=== PATIENT | male | born 1980 | race Caucasian/White ===

== ENCOUNTER 2017-09-26 19:18 | Emergency (ER) | payer OTHER ==
[2017-09-26 19:22] VITALS: BP 133/65; PULSE 88; TEMP 98.9; BMI 33.2
[2017-09-26 19:42] LABS: URINE APPEARANCE CLEAR; URINE BILIRUBIN NEGATIVE (<2.0 mg/dL); URINE COLOR LTYELLOW; URINE GLUCOSE (UA) NEGATIVE (NEGATIVE); URINE KETONE NEGATIVE (NEGATIVE); URINE NITRITE NEGATIVE (NEGATIVE); URINE PROTEIN NEGATIVE (NEGATIVE); URINE UROBILINOGEN NEGATIVE mg/dL (0.2-1.0)
[2017-09-26 19:46] LABS: URINE LEUK ESTERASE 1+ (NEGATIVE)
[2017-09-26] MEDS ORDERED: AZITHROMYCIN 1 GM PACKET PO ONE (19:46)
--- NOTE | 2017-09-26 19:54 | PDOC ---
History of Present Illness - General Chief Complaint: Penile Drainage Stated Complaint: DISCOMFORT Time Seen by Provider: 09/26/17 19:28 History Source: Patient Exam Limitations: No Limitations - History of Present Illness Travel History: No Initial Comments: 09/26/17 19:54 37-year-old male without significant past medical history presents emergency departments with penile burning and discharge for one week status post unprotected sex. Patient states she has had one female partner Ray had unprotected oral and vaginal intercourse and since his sexual encounter is been experiencing some penile discharge and penile burning. Pain in his penis is relieved with voiding. He denies any testicular pain, bloody ejaculate, hematuria, testicular pain, nausea, vomiting, abdominal pain. Past History - Past Medical History Allergies/Adverse Reactions: Allergies Allergy/AdvReac Type Severity Reaction Status Date / Time No Known Allergies Allergy Verified 09/26/17 19:20 Home Medications: Ambulatory Orders NK [No Known Home Medication] 09/26/17 COPD: No - Suicide/Smoking/Psychosocial Hx Smoking History: Never smoked Review of Systems - Review of Systems Able to Perform ROS?: Yes Is the patient limited Divehi proficient: No Constitutional: No: Symptoms Reported HEENTM: No: Symptoms Reported Respiratory: No: Symptoms reported Cardiac (ROS): No: Symptoms Reported ABD/GI: No: Symptoms Reported : Yes: See HPI Musculoskeletal: No: Symptoms Reported Integumentary: No: Symptoms Reported *Physical Exam - Vital Signs Last Vital Signs Temp Pulse Resp BP Pulse Ox 98.9 F 88 18 133/65 98 09/26/17 19:20 09/26/17 19:20 09/26/17 19:20 09/26/17 19:20 09/26/17 19:20 Medical Decision Making - Medical Decision Making 09/26/17 19:49 A/P: 37-year-old male with 1 week history of milky white penile discharge circumcised penis with Milky white discharge noted meatus Testicles nontender without masses or erythema Cremasteric reflex present bilaterally No hernias noted UA, GC, Rocephin, Zithromax, discharge *DC/Admit/Observation/Transfer Diagnosis at time of Disposition: Penile discharge, without blood - Discharge Dispostion Disposition: HOME Condition at time of disposition: Stable Decision to Admit order: No - Referrals - Patient Instructions Additional Instructions: You been treated today with azithromycin 1 g by mouth for treatment of presumed chlamydia You have been treated with Rocephin 250 mg injection for treatment of presumned gonorrhea The syphilis test, gonorrhea and chlamydia testing will not be completed for the next few days. You may call and leave message for return phone call with lab results. Be sure to be clear with your name, birthdate, and phone number Always use condoms with the partners Followup with your PMD in one week for reevaluation and retesting. - Post Discharge Activity
== END 2017-09-26 20:10 | disposition home or self-care (01) ==
LOC: JERFT 19:18
DX: R36.9 Urethral discharge, unspecified (principal)
CPT/HCPCS: 36415; 81003; 81015; 87491; 87591; 96372; 99281-25